=== PATIENT | male | born 1985 | race Caucasian/White ===

== ENCOUNTER → 2016-09-10 | Outpatient (CLI) | payer BC ==
[~2016-09-10] MED LIST: ASACOL400 MG PO; AZULFIDINE PO; BP MED; IRON325 ( 651 PO; LORTAB 5-325 M1 EACH PO; PREDNISONE PO; PREDNISONE10 MG PO; PRILOSEC PO; PROCTO-MED HC30 GM; PROCTOSOL-HC28.35 GM TOP; REMICADE; SULFASALAZINE500 M2 PO; ZESTRIL10 M1 PO; ZUPLENZ4 MG PO; [UNRECOGNIZED DRUG - OTHER] PO
[2016-09-10 08:21] LABS: HEMATOCRIT 42.9 % (38.0-50.0); HEMOGLOBIN 14.8 gm/dL (13.0-16.0); MEAN CELL VOLUME 88.7 FL (83-96); MEAN CORPUSCULAR HEMOGLOBIN 30.6 PG (28-34); MEAN CORPUSCULAR HGB CONC 34.5 g/dL (30-36); MEAN PLATELET VOLUME 8.7 FL (6.5-11.5); RED BLOOD COUNT 4.84 X10e (3.90-5.60); RED CELL DISTRIBUTION WIDTH 12.7 % (11.0-15.5); WHITE BLOOD COUNT 7.4 X10e3 (4.0-10.5)
[2016-09-10 08:31] LABS: ALBUMIN SERUM 4.7 g/dL (3.5-5.0); ALKALINE PHOSPHATASE 58 U/L (32-92); ALT (SGPT) 17 U/L (10-40); AST (SGOT) 17 U/L (10-42); BILIRUBIN,TOTAL 0.6 mg/dL (0.2-2.0); BLOOD UREA NITROGEN 16 mg/dL (9-23); BUN/CREATININE RATIO 14.54; CALCIUM SERUM 9.4 mg/dL (8.4-10.2); CARBON DIOXIDE 24 mmol/L (22-31); CHLORIDE 103 mmol/L (100-111); CREATININE SERUM 1.1 mg/dL (0.6-1.4); GLOM FILT RATE Estimated ABOVE60 mL/min (>60); GLUCOSE FASTING 126 mg/dL (70-110); POTASSIUM 3.3 mmol/L (3.5-5.1); PROTEIN TOTAL SERUM 7.7 g/dL (6.0-8.3); SODIUM 137 mmol/L (135-145)
== END | disposition home or self-care (01) ==
LOC: CLAB 07:37
PROVIDERS: Nurse Practitioner
DX: K51.90 Ulcerative colitis, unspecified, without complications (principal); Z79.899 Other long term (current) drug therapy
CPT/HCPCS: 36415; 80053; 85027; 96413; 96415; J1745

== ENCOUNTER → 2017-01-01 | Outpatient (CLI) | payer BC ==
[2017-01-01 09:05] LABS: HEMATOCRIT 44.4 % (38.0-50.0); MEAN CELL VOLUME 89.8 FL (83-96); MEAN CORPUSCULAR HEMOGLOBIN 30.4 PG (28-34); MEAN CORPUSCULAR HGB CONC 33.8 g/dL (30-36); MEAN PLATELET VOLUME 8.1 FL (6.5-11.5); RED BLOOD COUNT 4.94 X10e (3.90-5.60); RED CELL DISTRIBUTION WIDTH 13.4 % (11.0-15.5); WHITE BLOOD COUNT 9.1 X10e3 (4.0-10.5)
[2017-01-01 09:32] LABS: ALBUMIN SERUM 4.2 g/dL (3.5-5.0); BILIRUBIN,TOTAL 0.8 mg/dL (0.2-2.0); BUN/CREATININE RATIO 22.5; CALCIUM SERUM 9.4 mg/dL (8.4-10.2); CREATININE SERUM 0.8 mg/dL (0.6-1.4); GLOM FILT RATE Estimated 119.9 mL/min (>60); POTASSIUM 4.7 mmol/L (3.5-5.1); PROTEIN TOTAL SERUM 7.6 g/dL (6.0-8.3)
== END | disposition home or self-care (01) ==
LOC: CSSDAY 08:00
PROVIDERS: Nurse Practitioner
DX: K51.90 Ulcerative colitis, unspecified, without complications (principal); Z79.899 Other long term (current) drug therapy
CPT/HCPCS: 36415; 80053; 85027; 96413; 96415; J1745

== ENCOUNTER 2017-02-04 11:36 | Emergency (ER) | payer BC ==
[~2017-02-04] VITALS: Ht 182.9 cm; Wt 93.0 kg
[~2017-02-04 11:36] MED LIST changes: -LORTAB 5-325 M1 EACH PO; -PROCTO-MED HC30 GM; -PROCTOSOL-HC28.35 GM TOP; -REMICADE; -ZESTRIL10 M1 PO
[2017-02-04 12:36] LABS: BASOPHIL% 0.2 % (0-2.5); EOSINOPHIL# 0.4 X10e3 (0-0.7); EOSINOPHIL% 3.2 % (0.0-7.0); HEMATOCRIT 41.6 % (38.0-50.0); HEMOGLOBIN 13.9 gm/dL (13.0-16.0); LYMPHOCYTE% 7.7 % (17.0-45.0); MEAN CELL VOLUME 88.2 FL (83-96); MEAN CORPUSCULAR HEMOGLOBIN 29.4 PG (28-34); MEAN CORPUSCULAR HGB CONC 33.3 g/dL (30-36); MEAN PLATELET VOLUME 7.8 FL (6.5-11.5); MONOCYTE# 2.4 X10e3 (0-1.0); MONOCYTE% 19.3 % (3.0-12.0); NEUTROPHIL# 8.8 X10e3 (1.5-7.1); NEUTROPHIL% 69.6 % (40-75); PLATELET COUNT 574 X10e3 (140-420); RED BLOOD COUNT 4.72 X10e (3.90-5.60); RED CELL DISTRIBUTION WIDTH 12.9 % (11.0-15.5); WHITE BLOOD COUNT 12.6 X10e3 (4.0-10.5)
[2017-02-04 12:37] LABS: DIFF IND YES
[2017-02-04 12:53] LABS: PLATELET ESTIMATE INCREASED (NORMAL); RBC NORMAL YES
[2017-02-04 12:58] LABS: ALBUMIN SERUM 3.1 g/dL (3.5-5.0); BILIRUBIN, DIRECT 0.1 mg/dL (0.0-0.2); BILIRUBIN,INDIRECT 0.3 mg/dL (0.0-0.9); BILIRUBIN,TOTAL 0.4 mg/dL (0.2-2.0); BUN/CREATININE RATIO 7.77; CALCIUM SERUM 8.5 mg/dL (8.4-10.2); CREATININE SERUM 0.9 mg/dL (0.6-1.4); GLOM FILT RATE Estimated 114.2 mL/min (>60); POTASSIUM 3.6 mmol/L (3.5-5.1)
[2017-03-09] MEDS ORDERED: ZESTRIL10 M1 PO (08:15)
[2017-03-09] MEDS ORDERED: PROCTOSOL-HC28.35 GM TOP (08:27)
[2017-03-09] MEDS ORDERED: LORTAB 5-325 M1 EACH PO (08:30)
[2017-03-09] MEDS ORDERED: REMICADE (08:46)
== END 2017-02-04 13:32 | disposition home or self-care (01) ==
LOC: CED 11:36
PROVIDERS: Emergency Medicine
DX: K64.4 Residual hemorrhoidal skin tags (principal); R19.7 Diarrhea, unspecified; Z90.49 Acquired absence of other specified parts of digestive tract; Z79.899 Other long term (current) drug therapy
CPT/HCPCS: 36415; 80048; 80076; 83690; 85025; 96374; 99284; J2270

== ENCOUNTER 2017-02-09 10:02 | Inpatient (IN) | payer BC ==
[~2017-02-09] VITALS: Ht 180.3 cm; Wt 92.0 kg
--- NOTE | ~2017-02-09 | XA166 ---
[facility] A Service of [facility] RADIOLOGY TEXT RESULTS PATIENT: CYNDIE BRANDON LOCATION: [facility] 468-01 : 86 UNIT #: [id number] AGE: [address]: Moris Morgan MD SEX: M ORDER DR: [id number] [facility] [address] [place], [place] [address] [id number] I MR#: [id number] #: [id number] NAME: CYNDIE BRANDON : 1985 SEX: M STUDY DATE/TIME: 02/09/2017 15:20 UNIT: [facility] ROOM: [facility] STUDY DESCRIPTION: XA PICC Line Placement WO Port Attending Physician: Moris Morgan M.D. Ordering Physician: Moris Morgan M.D. Primary Care Physician: Leila Roblero MEDICAL IMAGING REPORT This report is preliminary unless electronic signature is present EXAM PICC line insertion 02/09/17 HISTORY IV access needed. PRE-PROCEDURE The procedure was explained to the patient and/or patient sales service representative including risks, benefits, potential complications and potential for alternative forms of treatment. Informed consent was obtained, and prior to initiating the procedure a formal timeout procedure was performed. PROCEDURE Using full standard sterile barrier technique, including caps, gowns, gloves, masks, as well as sterile skin preparation and standard sterile draping, the right arm was prepped and draped in the usual fashion, and real-time sterile ultrasound guidance was used to localize an arm vein and to confirm vessel patency. A hard copy ultrasound image was recorded. After local anesthesia with 1% Xylocaine, the vein was punctured using real-time sterile ultrasound guidance, and an 0.018 guidewire was advanced into the superior vena cava, using fluoroscopic guidance. A 5-Costa [place]ican dual-lumen PICC was then measured and deployed with the tip positioned in the superior vena cava. The position of the line was documented with a radiographic image. The line was secured in place with an adhesive dressing and an antibiotic patch was applied. Total fluoro time was 0.1 minutes. A single fluoroscopic spot image was obtained. IMPRESSION 1. Successful placement of a 5-[place]ican dual-lumen PowerPICC via the right arm under ultrasound and fluoroscopic guidance. The tip of the PICC [facility] A Service of [facility] RADIOLOGY TEXT RESULTS PATIENT: CYNDIE BRANDON LOCATION: [facility] 468-01 : 86 UNIT #: [id number] AGE: [address]: Moris Morgan MD SEX: M ORDER DR: is in good position in the superior vena cava. 2. A single fluoroscopic spot image was obtained. Dictated by... Demarcus Pineda M.D. THIS IS AN ELECTRONICALLY VERIFIED REPORT Demarcus Pineda M.D. at 02/13/2017 4:52 PM NISHA/carlos TD: 02/10/2017 11:12 JOB #: [id number] MEDICAL IMAGING REPORT Page 1 of 1 COPY
--- NOTE | ~2017-02-09 | A ---
[facility] DATE: 02/10/17 Patient: CYNDIE BRANDON Physician: KIANA Address: [address] [facility] Room/Bed: [address] [place] [address], Zip: [place] [address] Admit Date: 02/09/17 Date of : 86 Height: 5 11 Weight: 204 92.98 NUTRITIONAL ASSESSMENT: REASON: PT SEEN FOR TPN EVAL (DAY 2) PT IS 31 Y.O. MALE ADMITTED FOR COLITIS, PAIN PMH: ULCERATIVE COLITIS, IBD, HTN, GASTRIC ULCER Anthropometrics: 5'11", WT: 205# (93.1 KG), BMI: 28.6 Labs: GLU: 169, NA+:130, CA+:8.3, ALB: 2.6, TGs: 52 Meds: TPN, PHENERGAN, SOLU-MEDROL I/O & Bowel function: 1140/1400 Skin Integrity: NO KNOWN SKIN ISSUES Estimated Nutrition Needs: 6404-3469 KCAL (25-30 KCAL/KG BW) 110-140 G PRO (1.2-1.5 G PRO/KG BW) FLUIDS CONSISTENT W/KCAL NEEDS OR MANAGE PER MD Assessment: CHART REVIEWED AND EVENTS NOTED. PT SEEN FOR TPN EVAL. PER RN AND CHART, PT ADMITTED FOR ULCERATIVE COLITIS. PT IS S/P COLONOSCOPY REVEALING SEVERE COLITIS W/EXTENSIVE ULCERATIONS W/POLYPS. PT REPORTS DECREASED PO INTAKE AND APPETITE PAST WEEK D/T CHRONIC DIARRHEA (W/BLEEDING) AND ABDOMINAL PAIN. PT REPORTS LOSING ~20# PAST 3-4 WEEKS. (~9% SEVERE WEIGHT LOSS). PT CURRENTLY RECEIVING TPN 25% DEXTROSE, 5% AA @ 60 ML/HR (DAY 2). OF NOTE, PT DID NOT RECEIVE HIS MEDICATION (REMICADE) FOR PAST 4-5 MONTHS D/T INSURANCE ISSUES. PT REPORTED NO DIET QUESTIONS AT THIS TIME. SEE RECOMMENDATIONS BELOW. RD TO FOLLOW ON TPN TOLERANCE AND DIET ADVANCEMENT (& PROVIDE HOME DIET EDUCATION). -TPN PROVIDES 72 G PRO, 1224 DEXTROSE-KCAL, 1512 TOTAL KCAL Dx: 1. INADEQUATE PROTEIN-ENERGY INTAKE R/T CURRENT DIAGNOSIS, CURRENT CLINICAL CONDITION AEB PT REPORT ABOVE, NOTING ~9% SEVERE WEIGHT LOSS IN PAST 3-4 WEEKS (~20#). 2. INADEQUATE ORAL INTAKE R/T CURRENT CLINICAL CONDITION, DX AEB PT NPO, RECEIVING TPN. Intervention: 1. NPO 2. TPN Monitoring, Evaluation and Goals: 1. PARENTERAL NUTRITION; PROVIDE >80% ESTIMATED NUTRIENT NEEDS W/NO C/O N/V/D [facility] DATE: 02/10/17 Patient: CYNDIE BRANDON Physician: KIANA Address: [address] [place] [address] Room/Bed: [address] [place] [address], Zip: [place] [address] Admit Date: 02/09/17 Date of : 86 Height: 5 11 Weight: 204 92.98 2. WEIGHTS; PREVENT FURTHER WEIGHT LOSS 3. LABS; WNL: GLU, LYTES, TGs MONITOR: -TPN RATE/TOLERANCE -WEIGHTS -LABS Recommendations: 1. IF TPN CONTINUED, RECOMMEND TO ADVANCE CURRENT TPN 25% DEXTROSE, 5% AA TO GOAL RATE OF 90 ML/HR. RECOMMEND TO ADD 20% 250 ML LIPIDS q 72 HOURS -PROVIDES 108 G PRO, 1836 DEXTROSE KCAL, 2324 TOTAL KCAL (2824 TOTAL KCAL ON LIPID DAYS) (GUR: 4.0) ADVANCE 10 ML q 8 HOURS TO DESIRED GOAL RATE TO PREVENT RE-FEEDING SYNDROME 2. MONITOR LABS DAILY (ELECTROLYTES: K+, PHOS, MG+, NA+), TGs, BLOOD GLUCOSE LEVELS 3. ONCE FEASIBLE, BEGIN LIQUID DIET (CLEARS AND FULL LIQUID) TOLERATED, ADVANCE TO LOW FIBER/GI SOFT DIET RD WILL F/U PER PROTOCOL PT IS MOD/SEVERELY COMPROMISED Respectfully, ABAD BRUNNER MS, RD, LD Food and Nutritional Services [facility] cc: client file
--- NOTE | ~2017-02-09 | CR7 ---
[facility] A Service of [facility] RADIOLOGY TEXT RESULTS PATIENT: CYNDIE BRANDON LOCATION: [facility] 468-01 : 86 UNIT #: [id number] AGE: [address]: Moris Morgan MD SEX: M ORDER DR: [id number] [facility] [address] [place], [place] [address] [id number] I MR#: [id number] Acc #: [id number] NAME: CYNDIE BRANDON : 1985 SEX: M STUDY DATE/TIME: 02/09/2017 14:03 UNIT: [facility] ROOM: 468 STUDY DESCRIPTION: CR Abdomen Single AP View Attending Physician: Moris Morgan M.D. Ordering Physician: Moris Morgan M.D. Primary Care Physician: Leila Roblero MEDICAL IMAGING REPORT This report is preliminary unless electronic signature is present EXAM KUB. DATE 02/09/2017 HISTORY 31-year-old male with excessive belching today. Status post flexible sigmoidoscopy. History of ulcerative colitis and severe hemorrhoids. COMPARISON KUB, 10/05/2011 FINDINGS There is prjq-se-twrjjgrz generalized gaseous distension predominately of the small bowel, and to a lesser degree colon and the upper abdomen. This may be related to the patient's endoscopic procedure performed earlier today. Underlying generalized ileus not excluded. High-grade bowel obstruction thought less likely, given the distribution of bowel gas. Certainly, no gross free intraperitoneal air or pneumatosis is identified. Single surgical clip is seen within the right lateral mid abdomen and cholecystectomy clips are in place, as well. Imaged lung bases appear clear. No acute osseous abnormalities are identified. Single surgical clip is seen within the pelvis to the right of midline, also unchanged from 2012. IMPRESSION 1. Generalized avfu-zu-qhfaaesu gaseous distension of large and small bowel favored to represent other changes related to endoscopic procedure earlier today or perhaps changes of generalized ileus/enteritis. 2. No gross free intraperitoneal air is identified. [facility] A Service [facility] RADIOLOGY TEXT RESULTS PATIENT: CYNDIE BRANDON LOCATION: [facility] 468- : 86 UNIT #: [id number] AGE: [address]: Moris Morgan MD SEX: M ORDER DR: Dictated by... Alexandra Starr M.D. THIS IS AN ELECTRONICALLY VERIFIED REPORT Alexandra Starr M.D. at 02/10/2017 8:56 AM SERENA/marilee TD: 02/09/2017 18:11 JOB #: [id number] MEDICAL IMAGING REPORT Page 1 of 1 COPY
--- NOTE | ~2017-02-09 | HP ---
Unit #: [id number] #: [id number] Patient: JHONNY BRANDON [id number] [address] [place], [place] [address] [id number] I MR#: [id number] NAME: JHONNY BRANDON ROOM: 468 Age: 31 Sex: M Admission Date: 02/09/2017 : 1985 Attending Physician: Moris Morgan M.D. Primary Care Physician: Leila Roblero HISTORY AND PHYSICAL CHIEF COMPLAINT Profuse diarrhea with bleeding, abdominal pain, weight loss and anorexia on a background of severe ulcerative pancolitis. HISTORY OF PRESENT ILLNESS Jhonny is a 31-year-old young gentleman. 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 He has history of ulcerative pancolitis, which was controlled on Remicade. Somehow the Remicade was denied after initial approval, and he missed the Remicade for 5 months. Unfortunately, he was not seen at that time, as well. Subsequently, the Remicade was approved, was started in 8-week intervals. The patient, since then, has rapidly deteriorated. For the past couple weeks he has had a lot of diarrhea, along with blood and mucus and abdominal cramping and pain and also has to wake up at night every few minutes to go to the bathroom. He has lost some weight and has extremely poor appetite. PAST MEDICAL HISTORY Past medical history is significant for history of ulcerative colitis and hypertension. MEDICATIONS Previous medications include lisinopril 10 mg p.o. daily, as well as Remicade q.8 weeks. ALLERGIES He has no known drug allergies. PREVIOUS SURGERIES None. FAMILY HISTORY None of colon or pancreatic cancer or liver disease. 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 REVIEW OF SYSTEMS A detailed review of organ systems does reveal some weight loss. There is a history of low-grade fever, but it is not documented. No history of chills or rigors. No history of headache, seizures, chest pain or syncope. No history of cough, expectoration or hemoptysis. No history of dysuria, hematuria or polyuria. No history of focal seizures or extremity weakness. Unit #: [id number] #: [id number] Patient: JHONNY BRANDON PHYSICAL EXAMINATION GENERAL: On examination, he appears sick and unwell. VITAL SIGNS: He has sinus tachycardia of 110. Respiratory rate is 16, blood pressure is 139/86, and temperature is 99.4. GENERAL: He has mild pallor, there being no icterus, lymphadenopathy or peripheral edema. CARDIOVASCULAR EXAMINATION: Normal heart sounds. No murmurs on auscultation. RESPIRATORY: The lungs reveal normal breath sounds, good air entry. ABDOMEN: The abdomen is soft, but there are areas of tenderness throughout the abdomen; however, no rigidity, rebound or guarding is felt. The liver and spleen are not palpable. Bowel sounds are normal. (1) normal. DIAGNOSTIC STUDIES LABORATORY: Lab evaluation shows leukocytosis and low albumin. His level of C-reactive protein is also high. The renal function, liver function are normal. PROCEDURE: The patient's recent colonoscopy earlier today shows severe colitis throughout the entire colon with extensive ulcerations with polyps and friability. MANAGEMENT PLAN The patient will be admitted to the med/surg as an inpatient on a monitored bed. Will place a PICC line and start TPN. Also start him on Solu-Medrol 80 mg IV q.6 hours and Flagyl 500 mg IV q.8 hours. Repeat labs in the morning, along with urinalysis. The patient will be NPO except for ice chips, do an x-ray of the abdomen tomorrow morning. The Zestril 10 mg p.o. daily will be continued. After admission, the patient was reviewed late in the evening and is feeling better in terms of overall bowel pattern and frequency of bowel movements. He will be watched closely over the next 3-4 days. The purpose of the admission is to reduce the inflammatory intensity of the colitis so that the patient can then be resumed on Remicade in an outpatient setting. Also, if he does not improve with high-dose intravenous steroids, one needs to give consideration to total proctocolectomy. The above plan and the options were discussed with the patient and his mom and dad. Dictated by Janet Cruz TD: 02/10/2017 08:55 JOB #: [id number] Unit #: [id number] #: [id number] Patient: JHONNY BRANDON HISTORY AND PHYSICAL Page 1 of 1 X Moris Morgan MD HISTORY AND PHYSICAL
--- NOTE | ~2017-02-09 | DS ---
Unit #: [id number] #: [id number] Patient: CYNDIE BRANDON [id number] [address] [address] [id number] I MR#: [id number] NAME: CYNDIE BRANDON ROOM: 468 Age: 32 Sex: M Admission Date: 02/09/2017 : 1985 Discharge Date: 02/14/2017 Attending Physician: Moris Morgan M.D. Primary Care Physician: Leila Roblero DISCHARGE SUMMARY DIAGNOSES 1. Severe acute ulcerative pancolitis. 2. Malnutrition. 3. Hypertension. DISCHARGE MEDICATIONS 1. Lisinopril 10 mg p.o. daily. 2. Prednisone 60 mg p.o. daily. 3. Proctosol HC 2.5% topically rectal area 4 times daily. 4. Hydrocodone/acetaminophen 5/325, 1 p.o. p.r.n. pain q. 4 to 6 hours. FOLLOWUP The patient is to follow up with us in the office on Thursday. The patient is to follow up with this office on February 18, 2017. JENNIFER Brary was admitted with severe diarrhea with bleeding, abdominal pain, weight loss, inability to work for several days. It is noteworthy, the patient had missed any medication for 5 months for insurance reasons. In fact when he called us he has had agonizing symptoms with a high white count and C-reactive protein, and no albumin. He was thus admitted, and the symptoms controlled rapidly on IV Solu-Medrol. The dose of Remicade will be either doubled or the Remicade will be restarted in original dose, but as if he is starting afresh. During his stay an unprepped colonoscopy showed extensive colitis with deep ulcers, profuse (1) __ and fissuring. In fact, the patient does not respond rapidly after changing over to Remicade. Total colectomy is on the cards. Dictated by... Janet Cruz TD: 02/18/2017 09:45 JOB #: [id number] CC: Leila Roblero MD Unit #: [id number] #: [id number] Patient: CYNDIE BRANDON DISCHARGE SUMMARY Page 1 of 1 X Moris Morgan MD DISCHARGE SUMMARY
--- NOTE | ~2017-02-09 | OR ---
Unit #: [id number] #: [id number] Patient: CYNDIE BRANDON [id number] [facility]. [place], [place] [address] [id number] I MR#: [id number] NAME: CYNDIE BRANDON ROOM: 468 Date of Procedure: 02/09/2017 Admission Date: 02/09/2017 Surgeon: Moris Morgan M.D. : 1985 Attending Physician: Moris Morgan M.D. Primary Care Physician: Leila Roblero OPERATIVE REPORT PRIMARY CARE PHYSICIAN Priscilla Butts M.D. PREOPERATIVE DIAGNOSES The patient has presented with 10 days history of diarrhea up to 20 to 30 times a day along with fresh blood each time. In addition, he complains of abdominal cramping and pain. Lastly, his appetite is poor and he has not eaten very much in the past 3 or 4 days. He has missed his work at [employer] for past one week. PROCEDURE PERFORMED Colonoscopy up to cecum and terminal ileum. POSTOPERATIVE DIAGNOSES The patient had extensive severe acute ulcerative pancolitis extending from rectum all the way up to cecum. The changes were quite striking with marked deep ulcers, friability, erythema, and walt ulcers and bleeding throughout. There were large islands of pseudopolyps as well as deep fissures and ulcers. There were two areas of deep fissures particularly in the distal sigmoid and in the right colon. Multiple biopsies were obtained from the right colon and from the left colon and sent for histology. In addition, stool aspirate was also obtained and sent for C diff toxin. RECOMMENDATIONS The patient is being admitted for intravenous therapy. He was started on TPN and Solu-Medrol 80 mg IV q.6 hours. It is noteworthy the patient did not receive any Remicade for 4 or 5 months for insurance reasons and subsequently when it was approved, it was started in 8 weeks intervals which is clearly not appropriate. SEDATION USED MAC. DESCRIPTION OF PROCEDURE Following detailed explanation of potential risks and complications of a colonoscopy, namely perforation, bleeding, and complication related to sedation, the patient was brought to GI lab and laid in the left lateral decubitus position. A digital rectal examination was performed. The latter revealed presence of some fresh blood on the examining finger; however, no masses were felt in the rectosigmoid. Lubricated tip of the Olympus video colonoscope was inserted through the anus and advanced under Unit #: [id number] #: [id number] Patient: CYNDIE BRANDON direct vision. The scope was advanced past rectum into the sigmoid colon. Extensive ulceration, friability, and walt fissures were seen in the distal sigmoid and in the rectum. No hemorrhoids were noted. The scope tip was then navigated past the descending colon into the transverse colon. Again, the changes in the ulceration and extensive inflammation was diffused. The scope tip was then navigated all the way up to cecum with visualization of the ileocecal valve and the appendiceal orifice. There was extensive ulceration in the cecum and ascending colon. Some of the ulcers are as big as 3 to 4 cm. They were callusing. There were areas of pseudopolyps throughout the colon. The mucosa throughout was highly inflamed. Last few inches of the terminal ileum were also visualized after intubation of the ileocecal valve and these were normal. Successive segments of the colonic mucosa were then examined upon withdrawal. The above changes were again validated. Biopsies were obtained from right colon as well as from the left colon and sent separately for histology. In addition, stool aspirate was also obtained and sent for C diff toxin. The scope was then withdrawn and the patient returned to recovery area. He tolerated the procedure without any postprocedure complications. Dictated by... Janet Cruz/shaye TD: 02/10/2017 11:02 JOB #: [id number] CC: Priscilla Butts M.D. OPERATIVE REPORT Page 1 of 1 X Moris Morgan MD X PROCEDURE OPERATIVE NOTE
--- NOTE | ~2017-02-09 | FU ---
[facility] Therapy DATE: 02/13/17 Patient: CYNDIE BRANDON Physician: KIANA Address: [address] [facility] Room/Bed: [address] [place] [address], Zip: [place] [address] Admit Date: 02/09/17 Date of : [birth year] Height: 5 11 Weight: 202 92 NUTRITION MONITORING/FOLLOW-UP: Reason: PT SEEN FOR FOLLOW-UP/TPN (BEEN D'C'D ON DAY 4) DX: COLITIS, PAIN Anthropometrics: 5'11", WT: 202# (91.8 KG), BMI: 28.2 -WEIGHTS HAVE BEEN STABLE SINCE ADMIT Labs: GLU: 238, CA+:8.2, ALB: 2.2 Meds: SOLU-MEDROL, NACL, PHENERGAN I&O's: 1550/653 Skin: NO ISSUES Estimated Nutrition Needs: [id number] KCAL 110-140 G PRO Assessment: CHART REVIEWED AND EVENTS NOTED. PT SEEN FOR FOLLOW-UP. PT REPORTS TOLERATING PO INTAKE, NOTING CONSUMING ~75% BREAKFAST THIS AM, NOTING SOME DIARRHEA BUT STATES "IT'S A LOT LESS THAN BEFORE". PER RN AND CHART, TPN HAS BEEN D/C'D, PT CONSUMING LOW FIBER (LOW RESIDUE) DIET AT THIS TIME. THIS RD ENCOURAGED SLOW GRADUAL PO INTAKE + SUPPLEMENT INTAKE, PT AGREED TO ENSURE SHAKES BID, RD WILL ORDER. RD ALSO PROVIDED WRITTEN LOW FIBER DIET + FIBER CONTENT OF A LIST OF FOODS DIET EDUCATION. RD ALSO EMPHASIZED IMPORTANCE OF CHEWING FOOD THOROUGHLY AND BEING MORE AWARE OF HIS FOOD ENVIRONMENT. PT AND FAMILY DEMONSTRATED UNDERSTANDING OF THE TOPIC, REPORTED NO DIET QUESTIONS. PLANS IN PLACE FOR PT TO D/C HOME OVER THE WEEKEND. RD TO REMAIN AVAILABLE Dx: INADEQUATE PROTEIN-ENERGY INTAKE R/T CURRENT DIAGNOSIS, CURRENT CLINICAL CONDITION AEB PT REPORT ABOVE, NOTING ~9% SEVERE WEIGHT LOSS IN PAST 3-4 WEEKS (~20#).-ACTIVE 2. NEW Dx: ALTERED NUTRIENT UTILIZATION R/T PMH, CURRENT DIAGNOSIS AEB NEED FOR THERPEUTIC DIET ORDER. Intervention: 1. LOW FIBER (LOW RESIDUE) DIET 2. ENSURE SHAKES BID 3. WRITTEN HOME DIET EDUCATION Monitoring, Evaluation and Goals: 1. PARENTERAL NUTRITION; PROVIDE >80% ESTIMATED NUTRIENT NEEDS W/NO C/O N/V/D-RESOLVED 2. WEIGHTS; PREVENT FURTHER WEIGHT LOSS-MET/IN PROGRESS 3. LABS; WNL: GLU, LYTES, TGs-NOT MET/IN PROGRESS [facility] Therapy DATE: 02/13/17 Patient: CYNDIE BRANDON Physician: KIANA Address: [address] [facility] [address] Room/Bed: [address] [place] [address], Zip: [place] [address] Admit Date: 02/09/17 Date of : 86 Height: 5 11 Weight: 202 92 NEW GOAL: 1. ORAL INTAKE; CONSUME/TOLERATE >50% OF MEALS AND SUPPLEMENTS MONITOR: -PO INTAKE/APPETITE -WEIGHTS -SUPPLEMENT INTAKE -EDUCATION QUESTIONS Recommendations: 1. PLEASE ORDER CHOCOLATE ENSURE SHAKES BID W/MEALS FOR SUPPLEMENTAL NUTRITION 2. CONTINUE TO ENCOURAGE SLOW GRADUAL PO INTAKE PER PT TOLERANCE 3. CONSULT RD IF FURTHER DIET QUESTIONS REQUESTED RD WILL F/U PER PROTOCOL PT IS MODERATELY COMPROMISED Respectfully, ABAD BRUNNER MS, RD, LD Food and Nutritional Services [facility] [place] [facility] cc: client file
[2017-02-09] MEDS ORDERED: PROCTO-MED HC30 GM (10:53)
[2017-02-09 11:38] LABS: BASOPHIL% 0.2 % (0-2.5); EOSINOPHIL# 0.1 X10e3 (0-0.7); EOSINOPHIL% 0.9 % (0.0-7.0); HEMOGLOBIN 13.1 gm/dL (13.0-16.0); LYMPHOCYTE# 0.9 X10e3 (1.0-3.5); MEAN CORPUSCULAR HEMOGLOBIN 29.9 PG (28-34); MEAN CORPUSCULAR HGB CONC 34.4 g/dL (30-36); MEAN PLATELET VOLUME 7.3 FL (6.5-11.5); MONOCYTE# 1.6 X10e3 (0-1.0); MONOCYTE% 9.5 % (3.0-12.0); NEUTROPHIL# 14.6 X10e3 (1.5-7.1); NEUTROPHIL% 84.4 % (40-75); PLATELET COUNT 471 X10e3 (140-420); RED BLOOD COUNT 4.37 X10e (3.90-5.60); RED CELL DISTRIBUTION WIDTH 13.1 % (11.0-15.5); WHITE BLOOD COUNT 17.3 X10e3 (4.0-10.5)
[2017-02-09 11:51] LABS: DIFF IND YES
[2017-02-09 12:03] LABS: ALBUMIN SERUM 2.7 g/dL (3.5-5.0); BILIRUBIN,TOTAL 0.5 mg/dL (0.2-2.0); BUN/CREATININE RATIO 6.25; CALCIUM SERUM 8.5 mg/dL (8.4-10.2); CREATININE SERUM 1.6 mg/dL (0.6-1.4); PLATELET ESTIMATE INCREASED (NORMAL); POTASSIUM 3.4 mmol/L (3.5-5.1); PROTEIN TOTAL SERUM 6.7 g/dL (6.0-8.3)
[2017-02-10 03:13] LABS: HEMATOCRIT 37.1 % (38.0-50.0); HEMOGLOBIN 12.7 gm/dL (13.0-16.0); MEAN CELL VOLUME 86.7 FL (83-96); MEAN CORPUSCULAR HEMOGLOBIN 29.7 PG (28-34); MEAN CORPUSCULAR HGB CONC 34.3 g/dL (30-36); MEAN PLATELET VOLUME 7.4 FL (6.5-11.5); RED BLOOD COUNT 4.28 X10e (3.90-5.60); RED CELL DISTRIBUTION WIDTH 13.7 % (11.0-15.5); WHITE BLOOD COUNT 14.2 X10e3 (4.0-10.5)
[2017-02-10 03:45] LABS: ALBUMIN SERUM 2.6 g/dL (3.5-5.0); BILIRUBIN,TOTAL 0.5 mg/dL (0.2-2.0); CALCIUM SERUM 8.3 mg/dL (8.4-10.2); GLOM FILT RATE Estimated 100.6 mL/min (>60); MAGNESIUM 1.9 mg/dL (1.6-3.0); PHOSPHOROUS 4.6 mg/dL (2.5-4.6); PROTEIN TOTAL SERUM 6.6 g/dL (6.0-8.3)
[2017-02-10 16:23] LABS: URINE APPEARANCE CLEAR; URINE BILIRUBIN NEG (NEG); URINE BLOOD NEG (NEG); URINE COLOR YELLOW; URINE GLUCOSE NEG (NEG); URINE KETONE NEG (NEG); URINE LEUKOCYTE ESTERASE NEG (NEG); URINE NITRATE NEG (NEG); URINE PROTEIN NEG (NEG); URINE SPECIFIC GRAVITY 1.008 (1.003-1.035); URINE UROBILINOGEN 0.2 MG/DL (NEG)
[2017-02-11 03:15] LABS: HEMATOCRIT 33.5 % (38.0-50.0); HEMOGLOBIN 11.2 gm/dL (13.0-16.0); MEAN CELL VOLUME 87.9 FL (83-96); MEAN CORPUSCULAR HEMOGLOBIN 29.3 PG (28-34); MEAN CORPUSCULAR HGB CONC 33.4 g/dL (30-36); MEAN PLATELET VOLUME 7.4 FL (6.5-11.5); RED BLOOD COUNT 3.81 X10e (3.90-5.60); RED CELL DISTRIBUTION WIDTH 13.3 % (11.0-15.5); WHITE BLOOD COUNT 13.9 X10e3 (4.0-10.5)
[2017-02-11 03:39] LABS: ALBUMIN SERUM 2.6 g/dL (3.5-5.0); BILIRUBIN,TOTAL 0.4 mg/dL (0.2-2.0); BUN/CREATININE RATIO 17.77; CALCIUM SERUM 8.5 mg/dL (8.4-10.2); CREATININE SERUM 0.9 mg/dL (0.6-1.4); GLOM FILT RATE Estimated 114.2 mL/min (>60); POTASSIUM 4.2 mmol/L (3.5-5.1); PROTEIN TOTAL SERUM 6.2 g/dL (6.0-8.3)
[2017-02-11 03:50] LABS: MAGNESIUM 1.9 mg/dL (1.6-3.0); PHOSPHOROUS 3.3 mg/dL (2.5-4.6)
[2017-02-12 05:07] LABS: HEMATOCRIT 30.4 % (38.0-50.0); HEMOGLOBIN 10.3 gm/dL (13.0-16.0); MEAN CELL VOLUME 88.8 FL (83-96); MEAN CORPUSCULAR HGB CONC 33.8 g/dL (30-36); MEAN PLATELET VOLUME 7.3 FL (6.5-11.5); RED BLOOD COUNT 3.43 X10e (3.90-5.60); RED CELL DISTRIBUTION WIDTH 13.4 % (11.0-15.5); WHITE BLOOD COUNT 8.1 X10e3 (4.0-10.5)
[2017-02-12 06:55] LABS: ALBUMIN SERUM 2.2 g/dL (3.5-5.0); BILIRUBIN,TOTAL 0.1 mg/dL (0.2-2.0); CALCIUM SERUM 8.6 mg/dL (8.4-10.2); CREATININE SERUM 0.8 mg/dL (0.6-1.4); GLOM FILT RATE Estimated 119.9 mL/min (>60); PHOSPHOROUS 2.9 mg/dL (2.5-4.6); POTASSIUM 4.6 mmol/L (3.5-5.1); PROTEIN TOTAL SERUM 5.2 g/dL (6.0-8.3)
[2017-02-13 04:04] LABS: HEMATOCRIT 29.5 % (38.0-50.0); HEMOGLOBIN 10.2 gm/dL (13.0-16.0); LYMPHOCYTE# 0.4 X10e3 (1.0-3.5); MEAN CELL VOLUME 88.2 FL (83-96); MEAN CORPUSCULAR HEMOGLOBIN 30.4 PG (28-34); MEAN CORPUSCULAR HGB CONC 34.4 g/dL (30-36); MEAN PLATELET VOLUME 7.3 FL (6.5-11.5); MONOCYTE# 0.5 X10e3 (0-1.0); MONOCYTE% 5.5 % (3.0-12.0); NEUTROPHIL# 8.9 X10e3 (1.5-7.1); NEUTROPHIL% 90.5 % (40-75); PLATELET COUNT 303 X10e3 (140-420); RED BLOOD COUNT 3.34 X10e (3.90-5.60); RED CELL DISTRIBUTION WIDTH 13.3 % (11.0-15.5); WHITE BLOOD COUNT 9.8 X10e3 (4.0-10.5)
[2017-02-13 04:08] LABS: DIFF IND YES
[2017-02-13 04:17] LABS: ALBUMIN SERUM 2.2 g/dL (3.5-5.0); BILIRUBIN,TOTAL 0.2 mg/dL (0.2-2.0); BUN/CREATININE RATIO 21.25; CALCIUM SERUM 8.2 mg/dL (8.4-10.2); CREATININE SERUM 0.8 mg/dL (0.6-1.4); GLOM FILT RATE Estimated 119.9 mL/min (>60); MAGNESIUM 1.8 mg/dL (1.6-3.0); PHOSPHOROUS 2.6 mg/dL (2.5-4.6); POTASSIUM 4.4 mmol/L (3.5-5.1)
[2017-02-13 04:28] LABS: PLATELET ESTIMATE NORMAL (NORMAL)
[2017-02-14] MEDS ORDERED: PREDNISONE PO (08:28)
[2017-03-09] MEDS ORDERED: ZESTRIL10 M1 PO (08:15)
[2017-03-09] MEDS ORDERED: PROCTOSOL-HC28.35 GM TOP (08:27)
[2017-03-09] MEDS ORDERED: LORTAB 5-325 M1 EACH PO (08:30)
[2017-03-09] MEDS ORDERED: REMICADE (08:46)
== END 2017-02-14 09:30 | disposition home or self-care (01) | DRG 386 ==
LOC: COPS 10:02 → CPACUOF 13:15 → C4C 13:15 → CPACUOF 13:43 → COPS 13:43 → CPACUOF 16:00 → C4C 16:00
PROVIDERS: Internal Medicine Gastroenterology
PROC: B548ZZA Ultrasonography of Superior Vena Cava, Guidance (ICD-10-PCS; 2017-02-09)
PROC: 0DBG8ZX Excision of Left Large Intestine, Via Natural or Artificial Opening Endoscopic, Diagnostic (ICD-10-PCS; principal; 2017-02-09 15:30)
PROC: 0DBF8ZX Excision of Right Large Intestine, Via Natural or Artificial Opening Endoscopic, Diagnostic (ICD-10-PCS; 2017-02-09 15:30)
PROC: 02HV33Z Insertion of Infusion Device into Superior Vena Cava, Percutaneous Approach (ICD-10-PCS; 2017-02-09 15:30)
DX: K51.00 Ulcerative (chronic) pancolitis without complications (principal); E46 Unspecified protein-calorie malnutrition; Z68.28 Body mass index [BMI] 28.0-28.9, adult; I10 Essential (primary) hypertension; Z90.49 Acquired absence of other specified parts of digestive tract
CPT/HCPCS: 74000; 76937; 77001; 80053; 80061; 81003; 82947; 83735; 84100; 84478; 85025; 85027; 86140; 87493; 88305; C1751; J1170; J2550; J2930; J3010

== ENCOUNTER → 2017-02-23 | Outpatient (CLI) | payer BC ==
[~2017-02-23] MED LIST changes: +LORTAB 5-325 M1 EACH PO; +PROCTO-MED HC30 GM; +PROCTOSOL-HC28.35 GM TOP; +REMICADE; +ZESTRIL10 M1 PO
[2017-02-23 07:27] LABS: HEMATOCRIT 32.2 % (38.0-50.0); MEAN CORPUSCULAR HEMOGLOBIN 30.8 PG (28-34); MEAN CORPUSCULAR HGB CONC 34.2 g/dL (30-36); MEAN PLATELET VOLUME 7.4 FL (6.5-11.5); RED BLOOD COUNT 3.58 X10e (3.90-5.60); RED CELL DISTRIBUTION WIDTH 14.3 % (11.0-15.5); WHITE BLOOD COUNT 9.8 X10e3 (4.0-10.5)
[2017-02-23 07:51] LABS: ALBUMIN SERUM 2.9 g/dL (3.5-5.0); BILIRUBIN,TOTAL 0.7 mg/dL (0.2-2.0); BUN/CREATININE RATIO 18.75; CALCIUM SERUM 8.2 mg/dL (8.4-10.2); CREATININE SERUM 0.8 mg/dL (0.6-1.4); GLOM FILT RATE Estimated 119.1 mL/min (>60); POTASSIUM 3.6 mmol/L (3.5-5.1); PROTEIN TOTAL SERUM 5.6 g/dL (6.0-8.3)
== END | disposition home or self-care (01) ==
LOC: CSSDAY 02-09 15:30
PROVIDERS: Nurse Practitioner
DX: K51.00 Ulcerative (chronic) pancolitis without complications (principal)
CPT/HCPCS: 36415; 80053; 85027; 96413; 96415; J1745

== ENCOUNTER → 2017-03-09 | Outpatient (CLI) | payer BC ==
[2017-03-09 07:28] LABS: HEMATOCRIT 34.5 % (38.0-50.0); HEMOGLOBIN 11.4 gm/dL (13.0-16.0); MEAN CELL VOLUME 88.1 FL (83-96); MEAN CORPUSCULAR HGB CONC 32.9 g/dL (30-36); MEAN PLATELET VOLUME 6.7 FL (6.5-11.5); RED BLOOD COUNT 3.91 X10e (3.90-5.60); RED CELL DISTRIBUTION WIDTH 14.2 % (11.0-15.5); WHITE BLOOD COUNT 7.3 X10e3 (4.0-10.5)
[2017-03-09 08:00] LABS: ALBUMIN SERUM 3.4 g/dL (3.5-5.0); BILIRUBIN,TOTAL 0.3 mg/dL (0.2-2.0); BUN/CREATININE RATIO 13.75; CALCIUM SERUM 8.7 mg/dL (8.4-10.2); CREATININE SERUM 0.8 mg/dL (0.6-1.4); GLOM FILT RATE Estimated 119.1 mL/min (>60); POTASSIUM 3.8 mmol/L (3.5-5.1); PROTEIN TOTAL SERUM 6.1 g/dL (6.0-8.3)
== END | disposition home or self-care (01) ==
LOC: CSSDAY 07:06
PROVIDERS: Nurse Practitioner
DX: K51.00 Ulcerative (chronic) pancolitis without complications (principal)
CPT/HCPCS: 80053; 85027; 96413; 96415; J1745